=== PATIENT | female | born 1980 | race Caucasian/White ===

== ENCOUNTER 2025-07-04 11:37 | Emergency (ER) | payer MEDICAID, SELFPAY ==
[2025-07-04 11:42] VITALS: PULSE 78; RESP 18; O2SAT 99; BMI 21.6
--- NOTE | 2025-07-04 12:15 | XR_ITS ---
EXAMINATION: Ankle, right 3 views . Technique: Ankle AP, oblique, lateral 3 views Date and time of exam: July 04, 2025, 1234 hrs. Indications: Injury to the ankle today, ankle pain Findings: No acute fracture No dislocation No foreign body Impression: No acute fracture
--- NOTE | 2025-07-04 12:16 | EKG_ITS ---
[facility] Test Date: 2025-07-04 Pat Name: RASHARD BEAVER Department: Room: - Gender: Female Nurses' Aide: Harley : 1980 Requested By: Johnnie Villarreal Order Number: [id number] Reading MD: Johnnie Villarreal Measurements Intervals Thompson Rate: 73 P: 33 IL: 137 QRS: 57 QRSD: 89 T: 45 QT: 365 QTc: 403 Interpretive Statements SINUS RHYTHM POSSIBLE RIGHT VENTRICULAR CONDUCTION DELAY [RSR (QR) IN V1/V2] No previous ECG available for comparison /store/S0/[id number].pdf
--- NOTE | 2025-07-04 12:24 | EDNOTE_ITS ---
ED Fall Injury RME/HPI General Chief Complaint: Fall Stated Complaint: ANKLE INJURY Time Seen by Provider: 07/04/25 11:49 Arrival date/time: 07/04/25 11:37 Mode of arrival: EMS RME / HPI RME / HPI Narrative: Ms. Trujillo is a 44-year-old female with past medical history of cholelithiasis who presented to [facility] emergency department with a chief complaint of ankle injury status post mechanical fall. Patient reported that she was on her trailer when she missed the last step and tripped due to inversion of her ankle, patient tried to call her family for help but she did not have her phone on her and eventually called them using her watch. Patient also reported that she had an episode of passing out after the fall, family was present during the episode, no seizure or seizure-like activity noted. Patient reported that she was in intense pain after passing out, currently complains of uncontrollable pain as well. Right ankle swelling noted, abrasions on bilateral knees noted as well. Patient denies hitting her head reported that she was able to break her fall with her knees and hands. She also complains of a previous episode of passing out about 14 years ago after her normal vaginal delivery. Otherwise patient denies any shortness of breath chest pain or palpitations currently. She does report that she has episodes of anxiety and panic attacks when she experiences palpitations. Patient does report and endorse history of palpitations, reports seeing a logistics program manager prior to surgical evaluation for cholelithiasis, reports history of gallstones in the past, reports that she has not had any recent episodes of abdominal pain. Related Data Previous Rx's ?Medication ?Instructions ?Recorded acetaminophen 500 mg tablet 500 mg PO QID PRN pain (sc lissette 07/04/25 (Tylenol Extra Strength) score 1-3) 5 days #20 tabs hydrocodone 5 mg-acetaminophen 325 1 tab PO BID PRN pa in (scale score 07/04/25 mg tablet 7-10) #10 tabs ibuprofen 800 mg tablet 800 mg PO TID PRN pain (scal e 07/04/25 score 4-6) 5 days #15 tabs Allergies Allergy/AdvReac Type Severity Reaction Status Date / Time No Known Allergies Allergy Verified 07/04/25 11:48 Review of Systems Review of Systems Narrative Review of Systems: ROS: -CONSTITUTIONAL: Denies weight loss, fever and chills. -HEENT: Denies changes in vision and hearing. -RESPIRATORY: Denies SOB and cough. -CV: Denies palpitations and Chest Pain. -GI: Denies abdominal pain, nausea, vomiting,constipation and diarrhea. -: Denies dysuria and urinary frequency. -MSK: Denies myalgia and positive for right ankle pain. -SKIN: Denies rash and pruritus. -NEUROLOGICAL: Denies headache and syncope. -PSYCHIATRIC: Denies recent changes in mood. Denies anxiety and depression. Past Medical History Past Medical History Comments PMH COMMENT: PMH: Positive for cholelithiasis PSHx: 2NVD, hysterectomy and tubal ligation Allergies: Denies any drug or food allergies Social history: -Smoking: Occasional smoker, greater than 20 pack years -Alcohol Use: Occasional alcohol use -Illicit Drug Use: Denies Family History: No related or pertinent family history, does report some family history of thyroid problems. ED Exam Narrative Physical exam: Physical Exam General: Awake and in no acute distress. Conversational and non-toxic appearing. HEENT: Normocephalic, atraumatic, mucous membranes moist. Heart: Regular rate and rhythm, no murmurs. Lungs: Clear to auscultation with no wheezing or crackles. Abdomen: Soft, nondistended, nontender, positive bowel sounds. ?No guarding or rebound tenderness. Neurologic: Alert and oriented x3, no gross neurological deficit, and patient able to move all 4 extremities. Extremities: Swelling right ankle, good range of motion bilateral knees and wrist. Skin: Abrasions bilateral knees Course Quality Measures none Orders Category Date Time Status Crutches .NOW Care 07/04/25 14:03 Active Orthostatic Vitals NOW Care 07/04/25 12:21 Active Splint / Immobilizer STAT Care 07/04/25 14:03 Active XR ankle comp RT min 3V Stat Exams 07/04/25 12:15 Completed A1C [Glycohemoglobin w (eAG)] Stat Lab 07/04/25 12:21 Completed CBC Stat Lab 07/04/25 12:21 Completed CMP [Comprehensive Metabolic Panel] Stat Lab 07/04/25 12:21 Completed Free T4 (Free Thyroxine) Stat Lab 07/04/25 12:21 Completed Lipid Panel Stat Lab 07/04/25 12:21 Completed TSH [Thyroid Stimulating Hormone] Stat Lab 07/04/25 12:21 Completed Acetaminophen Tab [Tylenol ES Tab] Med 07/04/25 12:42 Active 500 mg PO Q4HR PRN Morphine* Inj Med 07/04/25 12:15 Active 1 mg IVP Q4HR PRN Sodium Chloride 0.9% 1000 ml [Ns] 1,000 ml Med 07/04/25 12:21 Discontinued IV 999 mls/hr EKG (RT) Stat RT 07/04/25 12:16 Draft Vital Signs Vital signs: Vital Signs Temperature 37.2 F L 07/04/25 12:45 Respiratory Rate 18 07/04/25 12:45 Blood Pressure 109/74 07/04/25 12:45 Pulse Oximetry (%) 100 07/04/25 12:45 Oxygen Delivery Method Room Air 07/04/25 12:45 Fall MDM Narrative MDM Narrative:: #Right ankle sprain #Status post mechanical fall #Syncopal episode likely vasovagal Patient missed a step, sprained her ankle and had a fall denies hitting head fall broken with her knees and hand. Complains of significant pain controlled with IV morphine, p.o. Tylenol, x-ray unremarkable for any fracture Patient had an episode of passing out after the fall, suspicion of vasovagal, orthostatic vitals negative, thyroid panel unremarkable, EKG unremarkable, does endorse some palpitations at times. -Patient will be discharged home after Duane wrap with boot and crutches - Partial weightbearing as tolerated, follow-up with primary care physician outpatient - Prescribed Tylenol/ibuprofen/Devens as needed for mild-moderate and severe pain, education on pain management provided at bedside. Warned about addiction potential of opiates. Case discussed with Attending Physician Dr. Jeyson Villarreal MD Internal Medicine PGY-2 Disclaimer: This note was dictated by speech recognition. Minor errors in software test manager may be present due to voice recognition software. Patient data External records reviewed:: [facility] previous records Clinical information provided by:: patient and family Social determinants that could affect healthcare access:: none Patient has the following chronic illnesses:: Cholelithiasis How is presenting disease/condition affected by chronic disease/condition?: uneffected by Evaluation data The following diagnostics were reviewed and interpreted by me:: lab results, radiology exam(s) and EKG tracing(s) Lab and/or radiology exams considered but not ordered:: None Interpretation Summary: Labs unremarkable other than RBC 3.84, hematocrit 35.9, glucose 119, triglycerides 263, HDL 62. Thyroid panel unremarkable EKG shows sinus rhythm Right ankle x-ray 3 view shows no acute fracture Medications / Prescriptions Medications or Prescriptions considered but not ordered:: None Medication administrations:: Medication Administration History Acetaminophen (Acetaminophen 500 Mg Tablet) 500 mg PO Q4HR PRN PRN Reason: PAIN SCALE 1-3 (mild Stop: 08/03/25 12:41 Last Admin: 07/04/25 13:01 Dose: 500 mg Documented By: BY Morphine Sulfate (Morphine Sulf Inj 4 Mg/Ml Vial) 1 mg IVP Q4HR PRN PRN Reason: PAIN SCALE 4-10(Mod-Sev Last Admin: 07/04/25 13:01 Dose: 1 mg Documented By: BY Discontinued Medications Sodium Chloride (Ns) 1,000 mls @ 999 mls/hr IV .Q1H1M ONE Stop: 07/04/25 13:21 Last Infusion: 07/04/25 14:19 Dose: Infused Documented By: Admin: 07/04/25 13:00 Dose: 999 mls/hr Documented By: BY As above Consultations Consultation(s) initiated? (list below): No Diagnosis Fall Differential Diagnosis: other (Ankle sprain, mechanical fall) Most likely diagnosis given after review of the tests above:: Ankle sprain secondary to mechanical fall and syncopal episode Admission Indicated Admission indicated?: not indicated Admission Request Was there a request for admission?: No Disposition Plan Disposition Plan: Discharge Discharge Attestation Discharge Attestation: The patient and all family members were given an opportunity to ask questions and understood the discharge instructions. Discharge instructions specifically effects, indications for sooner follow up or return to the emergency department, and the expected course of current diagnosis. Patient condition: Stable Discharge Plan Plan Patient Disposition: HOME (Self Care) Patient condition on transfer: Stable Health Concerns: -Keep ankle wrapped, use crutches for mobility, Weight bearing as tolerated, preferably partial -Use pain medication per pain scale below -Maintain adequate hydartion -Follow up with PCP in 1 week -You will benefit from O/P workup of syncope workup if you have another episode of fainting/dizziness spell, discuss with your PCP. -Attached logistics program manager information if needed as below -Follow-up in [facility] in 1 to 2 weeks if you don't have a PCP. Call [phone] to make an appointment Address: [facility], [address], [address], [place], [address] -Return to ED if symptoms return or worsen. Prescriptions/Referrals Prescriptions/Med Rec: New hydrocodone-acetaminophen 5-325 mg tablet 1 tab PO BID MDD 10 PRN (Reason: pain (scale score 7-10)) Qty: 10 0RF ibuprofen 800 mg tablet 800 mg PO TID PRN (Reason: pain (scale score 4-6)) 5 Days Qty: 15 0RF acetaminophen [Tylenol Extra Strength] 500 mg tablet 500 mg PO QID PRN (Reason: pain (scale score 1-3)) 5 Days Qty: 20 0RF Referrals: Elliott Kat MD [Physician, Cardiology] - In 1 week Alex Garcia MD [Primary Care Provider] - In 1 week Problem List Clinical Impression: High ankle sprain of right lower extremity Patient/Caregiver Discharge Instructions Education Materials: Understanding Ankle Sprain, ED DUANE Wrap Print Language: Prydeinig Stand Alone Forms: Samira Award Info., Patient Portal Info Letter MD Attestation Attestation I, Dr. Benítez, have reviewed the history, exam, and assessment of the patient. I have evaluated the patient independently and agree with the plan of care documented by the resident Dr. Villarreal. All diagnostic studies were reviewed and discussed. I confirm the diagnosis as documented by the resident. I was present during the Medical Decision Making for this patient. The patient?s plan of care was created between myself and the resident and consistent with our discussion of the patient?s case.
[2025-07-04 12:39] LABS: Basophils # (Auto) 0.0 Thou/mm3 (0.0-0.2); Basophils % (Auto) 0 % (0-2.5); Eosinophils # (Auto) 0.2 Thou/mm3 (0.0-0.5); Eosinophils % (Auto) 3 % (0-10); Hematocrit 35.9 % (36.0-46.0); Hemoglobin 12.4 g/dL (12.0-16.0); Immature Granulocytes Auto 0.01 Thou/mm3 (0.00-0.00); Lymphocytes # (Auto) 1.3 Thou/mm3 (1.0-4.8); Lymphocytes % (Auto) 18 % (10-50); Mean Corpuscular HGB Conc 34.5 g/dl (31.0-37.0); Mean Corpuscular Hemoglobin 32.3 pg (25.0-35.0); Mean Corpuscular Volume 94 fL (80-100); Monocytes # (Auto) 0.4 Thou/mm3 (0.0-0.8); Monocytes % (Auto) 6 % (0-12); Neutrophils # (Auto) 5.0 Thou/mm3 (1.8-7.7); Neutrophils % (Auto) 73 % (37-80); Nucleated Red Blood Cell # 0.00 Thou/mm3 (0.00-0.00); Nucleated Red Blood Cell % 0 /100 WBC (0); Platelet Count 150 Thou/mm3 (140-440); RDW Standard Deviation 40.6 fL (36.4-46.3); Red Blood Count 3.84 Miln/mm3 (4.00-5.20); White Blood Count 6.9 Thou/mm3 (3.6-11.0)
[2025-07-04 12:45] VITALS: BP 109/74; RESP 18; TEMP 2.9; TEMP 37.2; O2SAT 100
[2025-07-04 12:51] VITALS: BP 107/70; BP 108/66; PULSE 73; PULSE 82
[2025-07-04 12:55] LABS: Alanine Aminotransferase 18 U/L (10-49); Albumin, Serum 4.3 gm/dL (3.5-5.0); Albumin/Globulin Ratio 2.0 (1.2-2.2); Alkaline Phosphatase 80 U/L (46-116); Anion Gap 11 (7-16); Aspartate Amino Transferase 21 U/L (0-34); BUN/Creatinine Ratio 12 Ratio (12-20); Bilirubin,Total 0.5 mg/dL (0.3-1.2); Blood Urea Nitrogen 11 mg/dL (9-23); Calcium 9.5 mg/dL (8.3-10.6); Calcium (Corrected) 9.5 mg/dL (8.5-10.1); Carbon Dioxide 24.5 mMol/L (20.0-31.0); Cardiac Risk Estimate 2.6 RATIO (3.7-5.6); Chloride 105 mMol/L (98-107); Cholesterol 159 mg/dL (132-200); Creatinine (Component) 0.9 mg/dL (0.6-1.3); Estimated Creatinine Clearance 73.3 mL/min (>60); Free T4 (Free Thyroxine) 1.18 ng/dL (0.89-1.76); Globulin 2.1 gm/dL (2.3-3.5); Glucose 119 mg/dL (74-106); HDL Cholesterol 62 mg/dL (40-60); LDL Cholesterol,Calculated 44 mg/dL (0-130); Osmolality,Calculated 279 (275-295); Potassium 4.0 mMol/L (3.4-5.1); Sodium 140 mMol/L (136-145); Thyroid Stimulating Hormone 0.71 uIU/mL (0.55-4.78); Total Protein 6.4 gm/dL (5.7-8.2); Triglycerides 263 mg/dL (30-150); eGFR > 60 See Note
[2025-07-04] MEDS: SODIUM CHLORIDE 0.9% 1000 ML 1,000 ML 999 ML IV (13:00)
[2025-07-04] MEDS: MORPHINE SULF INJ 4 MG/ML VIAL 1 MG IVP (13:01)
[2025-07-04] MEDS: ACETAMINOPHEN 500 MG TABLET PO (13:01)
[2025-07-04 13:13] LABS: Glucose Estimated Average 103 mg/dL (80-131); Hemoglobin A1C 5.2 % Hgb (4.8-6.0)
[2025-07-04 14:41] VITALS: BP 115/82; PULSE 71; RESP 18; TEMP 36.7; O2SAT 99
--- NOTE | 2025-07-05 01:10 | PRELIM_ITS ---
Radiographs of the right ankle joint (3 views). July 04, 2025 1234 hours Clinical history: S/P fall Comparison: No prior study is available for comparison. Findings: There is no evidence of fracture or dislocation. The tibiotalar and subtalar joints are normal in configuration and alignment. The visualized bones are of normal configuration and density. Impression: No evidence of fracture or dislocation. Report Electronically Signed By: Greg Deleon 07/05/2025 1:09:32 AM [EST]
== END 2025-07-04 14:44 | disposition home or self-care (01) ==
PROVIDERS: Emergency Provider Emergency Medicine; PCP Family Medicine
DX: S93.401A Sprain of unspecified ligament of right ankle, initial encounter (principal); W17.89XA Other fall from one level to another, initial encounter; Y93.A3 Activity, aerobic and step exercise; Y92.029 Unspecified place in mobile home as the place of occurrence of the external cause; Y99.9 Unspecified external cause status; R55 Syncope and collapse
CPT/HCPCS: 36415; 73610; 80053; 80061; 83036; 84439; 84443; 85025; 93005; 96361; 96374; 99284; J2270; J7030; A9270

== ENCOUNTER → 2025-09-22 | Outpatient (CLI) | payer MEDICAID, SELFPAY ==
--- NOTE | 2025-09-22 13:00 | XR_ITS ---
Examination: MRI right ankle without contrast Date and time of exam: September 22, 2025, 1318 hours INDICATIONS: Injury to the ankle 3 months ago with redness swelling and pain Technique: Multiple MRI axial and sagittal sections right ankle Sagittal T2-weighted images, TR 3500, TE 118 T1 weighted transverse sections, TR 688 T8.5, T2-weighted sagittal sections T1 weighted sagittal sections TR 621, TE 30 T2 axial sections, TR 4, 190, TE 84. Findings: Vertical areas of increased signal in the Achilles tendon consistent with strain Plantar fascia intact Marrow edema involving hallucis longus tendon Extensor tendons intact IMPRESSION: Bone contusion cuboid and to a lesser extent lateral cuneiform, recommend CT scan ankle follow-up to exclude occult fractures at these sites Moderate strain posterior talofibular ligament Marked tendinitis flexor hallucis longus tendon
== END | disposition home or self-care (01) ==
PROVIDERS: PCP Nurse Practitioner Family; Referring Provider Nurse Practitioner Family; Visit Provider Nurse Practitioner Family
DX: S90.01XA Contusion of right ankle, initial encounter (principal); S96.811A Strain of other specified muscles and tendons at ankle and foot level, right foot, initial encounter; X58.XXXA Exposure to other specified factors, initial encounter
CPT/HCPCS: 73721